=== PATIENT | female | born 2000 | race Caucasian/White ===

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

== ENCOUNTER → 2020-07-06 09:49 | Outpatient (BNVA) | payer MEDICAID, SELFPAY | PROVIDERS: PCP Nurse Practitioner; Visit Provider Nurse Practitioner Women's Health | DX: Z11.3 Encounter for screening for infections with a predominantly sexual mode of transmission (principal); N91.5 Oligomenorrhea, unspecified | CPT/HCPCS: 84443; 84702; 87491; 87591; 87661 ==

== ENCOUNTER → 2020-07-28 13:05 | Outpatient (BNVA) | payer MEDICAID, SELFPAY | PROVIDERS: PCP Nurse Practitioner; Visit Provider Nurse Practitioner Women's Health | DX: R10.2 Pelvic and perineal pain (principal) | CPT/HCPCS: 76830 ==

== ENCOUNTER → 2020-08-11 11:29 | Outpatient (BNVA) | payer MEDICAID, SELFPAY | PROVIDERS: Visit Provider Nurse Practitioner Women's Health | DX: D64.9 Anemia, unspecified (principal); N91.4 Secondary oligomenorrhea; R10.2 Pelvic and perineal pain | CPT/HCPCS: 82728; 82746; 83550; 85025 ==

== ENCOUNTER → 2020-11-08 09:42 | Outpatient (BNVA) | payer MEDICAID, SELFPAY | PROVIDERS: Visit Provider Nurse Practitioner Women's Health | DX: N91.4 Secondary oligomenorrhea (principal); R10.2 Pelvic and perineal pain; E61.1 Iron deficiency; N85.4 Malposition of uterus; N83.8 Other noninflammatory disorders of ovary, fallopian tube and broad ligament | CPT/HCPCS: 76830; 82728; 83550; 85025 ==

== ENCOUNTER → 2020-12-16 15:56 | Outpatient (BNVA) | payer MEDICAID, SELFPAY | PROVIDERS: Visit Provider Obstetrics & Gynecology | DX: N89.8 Other specified noninflammatory disorders of vagina (principal); R10.2 Pelvic and perineal pain | CPT/HCPCS: 87491; 87591; 87661 ==

== ENCOUNTER 2021-03-07 17:24 | Emergency (ER) | payer MEDICAID, SELFPAY ==
[2021-03-07 18:18] VITALS: BP 112/66; PULSE 74; RESP 15; TEMP 36.7; O2SAT 96; BMI 28.3
--- NOTE | 2021-03-07 19:02 | ED_ITS ---
HPI - General Adult General: Chief complaint: Vaginal Bleeding Stated complaint: Preg Bleeding Time Seen by Provider: 03/07/21 18:27 History of Present Illness: HPI narrative: Patient is a 20-year-old female presents the emergency room with complaints of vaginal spotting x1 day patient tells me that her LMP was on 02/09/2021. Since then, she is concerned that she may be and underwent multiple test which were all positive. Patient denies any pelvic cramps. Reports spotting x1 day. No other complaints of any abdominal pain or nausea/vomiting, fever/chills, diarrhea, melena/hematochezia, new vaginal discharge, or urinary symptoms. Onset:1 day ago Duration:1 day Location:home Severity:mild Associated symptoms: Deny chest pain, dyspnea, nausea, rash, palpitations or vomiting Review of Systems Const: Denies: fever(s) or chills Eyes: Denies: change in vision ENMT: Denies: mouth pain Card: Denies: chest pain or palpitations Resp: Denies: dyspnea or non-productive cough GI: Denies: abdominal pain, nausea, vomiting or diarrhea : Reports: vaginal bleeding and other; Denies: dysuria or urinary frequency Musc: Denies: extremity pain Skin/Breast: Denies: rash or new lesions Neuro: Denies: weakness in extremities Psych: Reports: other (Normal mood) Bryan/Lymph: Denies: easy bruising PFSH ED PFSH: Medical History Iron deficiency anemia No pertinent past medical history neghx: htn,dm,thyroid,dvt/pe PCP: None Surgical History No pertinent past surgical history Family History Father Heart disease Denies family history of Colon cancer Ovarian cancer Diabetes Hypercholesteremia Breast cancer Hypertension Uterine cancer Thyroid disease Stroke Social History (Updated 03/07/21 @ 19:03 by Maylin Ngo MD) Smoking and tobacco status: never smoked Female Reproductive History: Date of last menstrual period: 02/05/21 Physical Exam Const: COMMON NORMALS: alert HENMT: COMMON NORMALS: atraumatic HEAD & SCALP: atraumatic MOUTH: moist mucous membranes not abnormal Eye: COMMON NORMALS: EOMs intact bilaterally and conjunctivae normal CONJUNCTIVA: Yes conjunctivae normal Neck/C-Spine: COMMON NORMALS: full ROM and supple Resp: COMMON NORMALS: normal respiratory effort and clear to auscultation bilaterally AUSCULTATION: clear to auscultation bilaterally Cardio: COMMON NORMALS: regular rate RATE: regular rate GI: COMMON NORMALS: Soft to palpation and non-tender PALPATION: Yes Soft to palpation : OTHER: Exam supervised by Keara JENKINS. External genitalia wnl. No erythema around cervical os, os closed, no discharge, +pool of blood in the vaginal vault without any active bleeding. Extremity: COMMON NORMALS: full ROM Neuro: SENSORIUM/ORIENTATION: Yes alert MOTOR EXAM: No Abnormal motor strength present and Other motor observations present (no focal motor deficits) Psych: COMMON NORMALS: speech normal SPEECH: Yes normal speech MOOD & AFFECT: Yes euthymic mood Course Vital Signs: Vital signs: Vital Signs Temperature 98.0 F 03/07/21 18:18 Pulse Rate 74 03/07/21 18:18 Respiratory Rate 15 03/07/21 18:18 Blood Pressure 112/66 03/07/21 18:18 Pulse Oximetry 96 03/07/21 18:18 MDM - General Adult MDM Narrative: Medical decision making narrative: Patient is a 20-year-old female G2, P1 presenting to the emergency room for evaluation of possible vaginal bleeding in setting of . Patient had multiple at home test was positive. Patient is noted to have a quantitative beta-hCG of 7. Pelvic ultrasound did not show any signs of active bleeding. However there is a pool of blood noted in the vaginal vault. Today she appears to be similar to previous H&H. Rh+. No signs of active bleeding on vaginal exam. I have given patient follow up with our senior case manager to be seen by Dr. Rodarte for vaginal bleeding and early given beta hcg of 7. Patient aware of a call from our senior case manager to schedule for appointment(s) and verbalizes understanding of the importance of following up. Instructed patient that it is important for her to follow-up with this provider since we need to trend her beta-hCG over time. Disposition: Discharge. Patient counseled regarding diagnostic impression, treatment plan. Patient given ED strict return precautions to return for continuation, worsening, or development of new symptoms. Instructed to f/u w/ Dr. Wheeler regarding symptoms today. Patient verbalized understanding. Lab Data: Labs: Lab Results 03/07/21 03/07/21 03/07/21 19:12 19:45 19:45 WBC 5.7 10^3/uL 10^3/ uL (4.5-13.0) RBC 4.91 10^6/uL 10^6 /uL (4.1-5.3) Hgb 10.6 g/dL L g/dL (11.5-15.3) Hct 35.7 % L % (37.0-47.0) MCV 72.7 fl L fl (81-99) MCH 21.6 pg L pg (28.0-34.0) MCHC 29.7 g/dL L g/dL (30.0-36.0) RDW 16.1 % H % (12.1-15.1) Plt Count 172 10^3/cmm 10^3 /cmm (130-400) MPV Not Reportable Neut % (Auto) 58.2 % % Lymph % (Auto) 31.7 % % [place] % (Auto) 8.4 % % Eos % (Auto) 1.0 % % Baso % (Auto) 0.5 % % Neut # (Auto) 3.34 10^3/uL 10^3 /uL (1.8-8.0) Lymph # (Auto) 1.8 10^3/uL 10^3/ uL (1.5-6.5) [place] # (Auto) 0.5 10^3/uL 10^3/ uL (0.2-0.9) Eos # (Auto) 0.1 10^3/uL 10^3/ uL (0.0-0.8) Baso # (Auto) 0.0 10^3/uL 10^3/ uL (0.0-0.1) Nucleated RBC % (a uto) 0 % % Nucleated RBCs # 0.0 /100WBC /100W BC Sodium 140 mmol/L mmol/L (136-145) Potassium 3.1 mmol/L L mmol /L (3.5-5.1) Chloride 105 mmol/L mmol/L (98-107) Carbon Dioxide 24 mmol/L mmol/L (22-29) Anion Gap 14.1 (5-19) BUN 5 mg/dL L mg/dL (6-20) Creatinine 0.7 mg/dL mg/dL (0.5-0.9) GFR Calculation 106.7 mL/min mL/m in (90-130) Glucose 83 mg/dL mg/dL (65-115) Calculated Osmolal ity 286 mOsm/kg mOsm/ kg (285-295) Calcium 8.3 mg/dL L mg/dL (8.5-10.5) Total Bilirubin 0.2 mg/dL mg/dL (0.15-1.2) AST 11 U/L U/L (0-32) ALT 8 U/L U/L (0-33) Alkaline Phosphata se 55 IU/L IU/L (35-105) Total Protein 6.6 g/dL g/dL (6.6-8.7) Albumin 4.3 g/dL g/dL (3.5-5.2) Globulin 2.3 g/dL g/dL (1.3-4.6) Ser , Ruy i-Qnt 7.15 mIU/mL mIU/m L Urine Color Dark yellow (Yellow) Urine Appearance Cloudy (CLEAR) Urine pH 6 (5-7) Ur Specific Gravit y 1.015 (1.005-1.030) Urine Protein 1+ H (Negative) Urine Glucose (UA) Norm (Normal) Urine Ketones Negative (Negative) Urine Blood 3+ H (Negative) Urine Nitrate Negative (Negative) Urine Bilirubin Neg (Negative) Urine Urobilinogen 1 mg/dL H mg/dL (Negative) Ur Leukocyte Briana ase Negative (Negative) Urine RBC Too numerous to c nt /hpf H /hpf (0-2) Urine WBC None /hpf /hpf (0-5) Ur Squamous Epith Cells 15-25 /hpf H /hpf (0-5) Amorphous Sediment Not Reportable Urine Bacteria None /hpf /hpf (NONE) Urine Mucus 1+ /hpf /hpf Blood Type Rho(D) Type 03/07/21 19:45 WBC RBC Hgb Hct MCV MCH MCHC RDW Plt Count MPV Neut % (Auto) Lymph % (Auto) [place] % (Auto) Eos % (Auto) Baso % (Auto) Neut # (Auto) Lymph # (Auto) [place] # (Auto) Eos # (Auto) Baso # (Auto) Nucleated RBC % (a uto) Nucleated RBCs # Sodium Potassium Chloride Carbon Dioxide Anion Gap BUN Creatinine GFR Calculation Glucose Calculated Osmolal ity Calcium Total Bilirubin AST ALT Alkaline Phosphata se Total Protein Albumin Globulin Ser , Ruy i-Qnt Urine Color Urine Appearance Urine pH Ur Specific Gravit y Urine Protein Urine Glucose (UA) Urine Ketones Urine Blood Urine Nitrate Urine Bilirubin Urine Urobilinogen Ur Leukocyte Briana ase Urine RBC Urine WBC Ur Squamous Epith Cells Amorphous Sediment Urine Bacteria Urine Mucus Blood Type A Positive Rho(D) Type Positive Discharge Plan Discharge Patient Disposition: Home Clinical Impression: Vaginal bleeding Condition: Stable Prescriptions: No Action levonorgestrel-ethinyl estrad [Levora-28] 0.15-0.03 mg tablet 1 tab PO DAILY Qty: 84 RF: 3 ibuprofen 800 mg tablet 800 mg PO TID PRN (Reason: pain) RF: 0 doxycycline hyclate 100 mg capsule 100 mg PO BID 14 Days Qty: 28 RF: 0 metronidazole [Flagyl] 500 mg tablet 500 mg PO BID 14 Days Qty: 28 RF: 0 ferrous sulfate 325 mg (65 mg iron) tablet 325 mg PO BID Qty: 60 RF: 4 Discharge Orders: Discharge ED (Routine); Ordered 03/07/21 Ordered By: Maylin Ngo Discharge Diet: Advance as tolerated Discharge Activity: Resume usual activity Patient Instructions: Abnormal (Dysfunctional) Uterine Bleeding (ED) Activity Restrictions/Additional Instructions: Our senior case manager will have you follow-up with Dr. Wheeler in the next few days for vaginal bleeding. You would be expected to have a phone call with our senior case manager who will put you on the schedule. Come back to the emergency room if you noticed any significant bleeding, nausea/vomiting, fever/chills, any new EXTR complaints Coding Level of Care Code ED Hold Worker for Waleg Fwd Exam Comprehensive
[2021-03-07 19:52] LABS: Basophils % 0.5 %; Eosinophils # 0.1 10^3/uL (0.0-0.8); Hematocrit 35.7 % (37.0-47.0); Hemoglobin 10.6 g/dL (11.5-15.3); Lymphocytes # 1.8 10^3/uL (1.5-6.5); Lymphocytes % 31.7 %; Mean Corpuscular HGB Conc 29.7 g/dL (30.0-36.0); Mean Corpuscular Hemoglobin 21.6 pg (28.0-34.0); Mean Corpuscular Volume 72.7 fl (81-99); Monocytes # 0.5 10^3/uL (0.2-0.9); Monocytes % 8.4 %; Neutrophils # 3.34 10^3/uL (1.8-8.0); Neutrophils % 58.2 %; Nucleated Red Blood Cells % 0 %; Platelet Count 172 10^3/cmm (130-400); Red Blood Count 4.91 10^6/uL (4.1-5.3); Red Cell Distribution Width 16.1 % (12.1-15.1); White Blood Count 5.7 10^3/uL (4.5-13.0)
[2021-03-07 19:56] LABS: Protein Urine 1+ (Negative); Specific Gravity, Urine 1.015 (1.005-1.030); Urine Appearance Cloudy (CLEAR); Urine Color Dark Yellow (Yellow); pH Urine 6 (5-7)
[2021-03-07 19:57] LABS: Add Urine Culture? No; Add Urine Microscopic? YES; Bilirubin Urine Neg (Negative); Blood Urine 3+ (Negative); Glucose Urine UA Norm (Normal); Ketones Urine Negative (Negative); Leukocyte Esterase Urine Negative (Negative); Mucus Urine 1+ /hpf; Nitrate Urine Negative (Negative); RBC Urine TOO NUMEROUS TO CNT /hpf (0-2); Squamous Epithelial Cell Urine 15-25 /hpf (0-5); Urobilinogen Urine 1 mg/dL (Negative)
[2021-03-07 20:17] LABS: Slide Review Slide Review Perform
[2021-03-07 20:25] LABS: HCG Quantitative 7.15 mIU/mL
[2021-03-07 20:36] LABS: Alanine Aminotransferase 8 U/L (0-33); Albumin Level 4.3 g/dL (3.5-5.2); Alkaline Phosphatase 55 IU/L (35-105); Anion Gap 14.1 (5-19); Aspartate Amino Transferase 11 U/L (0-32); Blood Urea Nitrogen 5 mg/dL (6-20); Calcium 8.3 mg/dL (8.5-10.5); Carbon Dioxide 24 mmol/L (22-29); Chloride 105 mmol/L (98-107); Globulin 2.3 g/dL (1.3-4.6); Glomerular Filtration Rate 106.7 mL/min (90-130); Glucose 83 mg/dL (65-115); Osmolality Calculated 286 mOsm/kg (285-295); Potassium 3.1 mmol/L (3.5-5.1); Sodium 140 mmol/L (136-145); Total Bilirubin 0.2 mg/dL (0.15-1.2); Total Protein 6.6 g/dL (6.6-8.7)
[2021-03-07 21:52] VITALS: BP 115/67; PULSE 71; RESP 16; TEMP 36.7; O2SAT 97
--- NOTE | 2021-03-08 15:12 | DCPLANNER ---
Addendum entered by Vera Ga 04/21/21 11:24: Patient had a follow up appointment scheduled for 04.11.21 with [facility] - patient did not attend appointment. Addendum entered by Vera Ga 04/12/21 08:01: athletic equipment manager was contacted by the [facility], was told that clinic will not see patient at this time due to many no shows in the past. The clinic has discharged patient and will not see. Clinic called patient, and cancelled the appointment, and explained to patient that she will not be seen at the clinic. Addendum entered by Vera aG 03/24/21 13:34: Patient has a followup appointment scheduled for Sunday, April 11, 2021 at 1:[address] Perez at [facility]. Clinic will call patient with appointment information. Original Note: athletic equipment manager had message to schedule a follow up appointment for patient with [facility]. athletic equipment manager called the [facility], spoke with Henry, gave clinic patients information. athletic equipment manager was told that patients information would be printed and reviewed. Clinic will call patient with appointment information.
== END 2021-03-07 21:54 | disposition home or self-care (01) ==
PROVIDERS: Nurse Practitioner Family; Emergency Provider Emergency Medicine
DX: N93.9 Abnormal uterine and vaginal bleeding, unspecified (principal)
CPT/HCPCS: 80053; 81001; 84702; 85025; 86900; 99283

== ENCOUNTER 2021-03-13 17:05 | Emergency (ER) | payer MEDICAID, SELFPAY ==
[2021-03-13 17:50] VITALS: BP 115/78; PULSE 70; RESP 16; O2SAT 98
[2021-03-13 19:06] LABS: Basophils # 0.1 10^3/uL (0.0-0.1); Eosinophils # 0.1 10^3/uL (0.0-0.8); Eosinophils % 1.7 %; Hematocrit 35.4 % (37.0-47.0); Hemoglobin 10.1 g/dL (11.5-15.3); Lymphocytes # 2.3 10^3/uL (1.5-6.5); Lymphocytes % 43.4 %; Mean Corpuscular HGB Conc 28.5 g/dL (30.0-36.0); Mean Corpuscular Hemoglobin 21.1 pg (28.0-34.0); Mean Corpuscular Volume 73.9 fl (81-99); Monocytes # 0.4 10^3/uL (0.2-0.9); Monocytes % 6.7 %; Neutrophils # 2.45 10^3/uL (1.8-8.0); Nucleated Red Blood Cells % 0 %; Platelet Count 202 10^3/cmm (130-400); Red Blood Count 4.79 10^6/uL (4.1-5.3); Red Cell Distribution Width 16.3 % (12.1-15.1); White Blood Count 5.2 10^3/uL (4.5-13.0)
[2021-03-13 19:22] LABS: HCG, Serum Qual Negative (Negative)
[2021-03-13 19:28] LABS: Slide Review Slide Review Perform
--- NOTE | 2021-03-13 19:37 | ED_ITS ---
HPI - General Adult General: Chief complaint: Vaginal Bleeding Stated complaint: Was told she miscarried and wants a second opinion Time Seen by Provider: 03/13/21 19:37 History of Present Illness: HPI narrative: 20-year-old female comes in today for complaints of miscarriage. Patient reports that she had a miscarriage back on the and bled for about 3 days. Patient did not notice any large passage of product. Patient came in for further evaluation. Patient appears well. Patient denies any fever. Patient appears in no pain. Review of Systems : Reports: irregular period PFSH ED PFSH: Medical History Iron deficiency anemia No pertinent past medical history neghx: htn,dm,thyroid,dvt/pe PCP: None Surgical History No pertinent past surgical history Family History Father Heart disease Denies family history of Colon cancer Ovarian cancer Diabetes Hypercholesteremia Breast cancer Hypertension Uterine cancer Thyroid disease Stroke Social History (Updated 03/07/21 @ 19:03 by Maylin Ngo MD) Smoking and tobacco status: never smoked Female Reproductive History: Date of last menstrual period: 02/05/21 Physical Exam Const: COMMON NORMALS: healthy appearing Resp: COMMON NORMALS: normal respiratory effort Cardio: COMMON NORMALS: regular rate and regular rhythm RATE: regular rate RHYTHM: regular rhythm GI: COMMON NORMALS: Soft to palpation PALPATION: Yes Soft to palpation and No Tenderness to palpation present (GI) Extremity: COMMON NORMALS: normal to inspection Course Vital Signs: Vital signs: Vital Signs Pulse Rate 70 03/13/21 17:50 Respiratory Rate 16 03/13/21 17:50 Blood Pressure 115/78 03/13/21 17:50 Pulse Oximetry 98 03/13/21 17:50 MDM - General Adult MDM Narrative: Medical decision making narrative: Patient came in for concerns of not passing any products of conception after miscarriage. Patient reports that she was about 3 weeks along when she had a miscarriage. Patient reports 3 days of bleeding but no obvious signs of products of conception. Vital signs are normal. Patient appears well. Differential diagnosis includes but not limited to incomplete spontaneous , miscarriage, worried well. Laboratory values were CBC which was unchanged. Serum hCG was negative. I reviewed with patient red flags to monitor for including fever, abnormal vaginal discharge, or bleeding greater than 1 pad an hour with recommendations for follow-up. I reassured the patient that she may have not had a large amount of product passed and may not have noticed it with her bleeding. Patient understands to monitor for signs of infection and return as needed. Patient reported understanding of care plan. Lab Data: Labs: Lab Results 03/13/21 03/13/21 18:56 18:56 WBC 5.2 10^3/uL 10^3/ uL (4.5-13.0) RBC 4.79 10^6/uL 10^6 /uL (4.1-5.3) Hgb 10.1 g/dL L g/dL (11.5-15.3) Hct 35.4 % L % (37.0-47.0) MCV 73.9 fl L fl (81-99) MCH 21.1 pg L pg (28.0-34.0) MCHC 28.5 g/dL L g/dL (30.0-36.0) RDW 16.3 % H % (12.1-15.1) Plt Count 202 10^3/cmm 10^3 /cmm (130-400) MPV Not Reportable Neut % (Auto) 47.0 % % Lymph % (Auto) 43.4 % % [place] % (Auto) 6.7 % % Eos % (Auto) 1.7 % % Baso % (Auto) 1.0 % % Neut # (Auto) 2.45 10^3/uL 10^3 /uL (1.8-8.0) Lymph # (Auto) 2.3 10^3/uL 10^3/ uL (1.5-6.5) [place] # (Auto) 0.4 10^3/uL 10^3/ uL (0.2-0.9) Eos # (Auto) 0.1 10^3/uL 10^3/ uL (0.0-0.8) Baso # (Auto) 0.1 10^3/uL 10^3/ uL (0.0-0.1) Nucleated RBC % (a uto) 0 % % Nucleated RBCs # 0.0 /100WBC /100W BC HCG, Qual Negative (Negative) Discharge Plan Discharge Patient Disposition: Home Clinical Impression: Miscarriage Condition: Stable Prescriptions: No Action levonorgestrel-ethinyl estrad [Levora-28] 0.15-0.03 mg tablet 1 tab PO DAILY Qty: 84 RF: 3 ibuprofen 800 mg tablet 800 mg PO TID PRN (Reason: pain) RF: 0 doxycycline hyclate 100 mg capsule 100 mg PO BID 14 Days Qty: 28 RF: 0 metronidazole [Flagyl] 500 mg tablet 500 mg PO BID 14 Days Qty: 28 RF: 0 ferrous sulfate 325 mg (65 mg iron) tablet 325 mg PO BID Qty: 60 RF: 4 Discharge Orders: Discharge ED (Routine); Ordered 03/13/21 Ordered By: Everton Nuñez Discharge Diet: Usual diet Discharge Activity: Increase activity as tolerated Patient Instructions: Miscarriage (ED), Opioid Safety Activity Restrictions/Additional Instructions: Follow-up with primary care. Monitor for fever greater than 100.4, abnormal vaginal discharge, or bleeding through 1 pad greater than an hour. Return to the ER as needed. Coding Level of Care Code ED Bra[address] [employer] for Guilherme Sneed
[2021-03-13 20:11] VITALS: PULSE 62; RESP 16; O2SAT 99
== END 2021-03-13 20:12 | disposition home or self-care (01) ==
PROVIDERS: Emergency Provider Nurse Practitioner Family
DX: O03.9 Complete or unspecified spontaneous abortion without complication (principal)
CPT/HCPCS: 36415; 84703; 85025; 99282

== ENCOUNTER 2021-05-29 00:26 | Emergency (ER) | payer MEDICAID, SELFPAY ==
[2021-05-29 00:40] VITALS: BP 101/67; PULSE 71; RESP 19; TEMP 36.7; O2SAT 99; BMI 28.0
--- NOTE | 2021-05-29 00:54 | ED_ITS ---
HPI - Back Pain/Injury General: Chief Complaint: Back Pain/Injury Stated Complaint: Lower Back Pain\Ovary Pain Time Seen by Provider: 05/29/21 00:54 History of Present Illness: 20-year-old female comes in today with right side abdominal pain radiating to her back. Patient reports a history of ovarian cyst. Patient denies any fever or chills. Patient is also concerned about STDs as her male significant other is not painful. Patient reports no significant vaginal discharge or drainage. Patient appears well. Patient appears in mild pain. MD elicited complaint: back pain Associated symptoms: Reports abdominal pain; Deny vomiting Review of Systems General: Reports: 10 or more systems reviewed and unremarkable except in HPI and below Card: Denies: chest pain Resp: Denies: dyspnea GI: Reports: abdominal pain; Denies: vomiting, diarrhea or constipation : Denies: vaginal odor, vaginal bleeding or vaginal discharge Musc: Reports: back pain PFS ED PFSH: Medical History Iron deficiency anemia No pertinent past medical history neghx: htn,dm,thyroid,dvt/pe PCP: None Surgical History No pertinent past surgical history Family History Father Heart disease Denies family history of Colon cancer Ovarian cancer Diabetes Hypercholesteremia Breast cancer Hypertension Uterine cancer Thyroid disease Stroke Social History (Updated 03/07/21 @ 19:03 by Maylin Ngo MD) Smoking and tobacco status: never smoked Female Reproductive History: Date of last menstrual period: 05/07/21 Physical Exam Const: COMMON NORMALS: alert Resp: COMMON NORMALS: normal respiratory effort and clear to auscultation bilaterally AUSCULTATION: clear to auscultation bilaterally Cardio: COMMON NORMALS: regular rate and regular rhythm RATE: regular rate RHYTHM: regular rhythm GI: COMMON NORMALS: Soft to palpation PALPATION: Yes Soft to palpation and Yes Tenderness to palpation present (GI) (Suprapubic) : COMMON NORMALS: Yes no CVA tenderness BLADDER/KIDNEY EXAM: Yes no CVA tenderness Back/Pelvis: COMMON NORMALS: no CVA tenderness Extremity: COMMON NORMALS: normal to inspection and full ROM Neuro: SENSORIUM/ORIENTATION: Yes alert Skin: COMMON NORMALS: no rashes or lesions noted GENERAL SKIN EXAM: no maria del rosario hes or lesions noted Course Vital Signs: Vital signs: Vital Signs Temperature 98.0 F 05/29/21 00:40 Pulse Rate 71 05/29/21 00:40 Respiratory Rate 19 H 05/29/21 00:40 Blood Pressure 101/67 05/29/21 00:40 Pulse Oximetry 99 05/29/21 00:40 MDM - Back Pain/Injury Medical Decision Making 20-year-old female comes in today with complaints of low back pain and suprapubic discomfort. Patient reports no significant abnormal bleeding or vaginal discharge. Patient reports no pain with urination. Patient is concerned about STIs. On exam respirations are even lungs are clear to a uscultation. Abdomen soft with some suprapubic tenderness. No palpable paraspinous muscle tenderness or spinal tenderness is noted on palpation. Differential diagnosis includes but not limited to ovarian cyst, UTI, STD. Review of the record patient has had multiple ultrasounds of her pelvis and often she has indication for ovarian cyst with one report showing polycystic ovarian syndrome. Urinalysis today had a large amount of white blood cells but also was contaminated with skin cells. We will go ahead and send urine for gonorrhea chlamydia evaluation. We will cover a 500 mg of Rocephin and continue patient on doxycycline due to her concerns for STI. I believe the pain probably most likely is due to ovarian cyst. Patient should follow-up with primary care and may be consider RAIL CAR LOADER for further evaluation. No sign of serious illness was noted on exam and patient was recommended and encouraged to follow-up. Labs Laboratory Results Urine Color Yellow (Yellow) 05/29/21 00:48 Urine Appearance Sl hazy (CLEAR) 05/29/21 00:48 Urine pH 7 (5-7) 05/29/21 00:48 Ur Specific [place] 1.015 (1.005-1.030) 05/29/21 00:48 Urine Protein Trace (Negative) 05/29/21 00:48 Urine Glucose (UA) Norm (Normal) 05/29/21 00:48 Urine Ketones 1+ (Negative) H 05/29/21 00:48 Urine Blood Neg (Negative) 05/29/21 00:48 Urine Nitrate Negative (Negative) 05/29/21 00:48 Urine Bilirubin Neg (Negative) 05/29/21 00:48 Urine Urobilinogen 1 mg/dL (Negative) H 05/29/21 00:48 Ur Leukocyte Esterase 1+ (Negative) H 05/29/21 00:48 Urine RBC 0-4 /hpf (0-2) H 05/29/21 00:48 Urine WBC 15-25 /hpf (0-5) H 05/29/21 00:48 Ur Squamous Epith Cells 25-40 /hpf (0-5) H 05/29/21 00:48 Amorphous Sediment Not Reportable 05/29/21 00:48 Urine Bacteria 2+ /hpf (NONE) H 05/29/21 00:48 Urine Mucus 3+ /hpf 05/29/21 00:48 Urine HCG, Qual Negative (Negative) 05/29/21 00:48 Discharge Plan Discharge Patient Disposition: Home Clinical Impression: Pelvic pain, Family history of STDs Condition: Stable Prescriptions: New naproxen 500 mg tablet 500 mg PO BID Qty: 14 0RF Continued doxycycline hyclate 100 mg capsule 100 mg PO BID 7 Days Qty: 14 0RF No Action levonorgestrel-ethinyl estrad [Levora-28] 0.15-0.03 mg tablet 1 tab PO DAILY Qty: 84 3RF ibuprofen 800 mg tablet 800 mg PO TID PRN (Reason: pain) 0RF metronidazole [Flagyl] 500 mg tablet 500 mg PO BID 14 Days Qty: 28 0RF ferrous sulfate 325 mg (65 mg iron) tablet 325 mg PO BID Qty: 60 4RF Discharge Orders: Discharge ED (Routine); Ordered 05/29/21 Ordered By: Everton Nuñez Discharge Diet: Usual diet Discharge Activity: Increase activity as tolerated Activity Restrictions/Additional Instructions: Activity as tolerated. Use naproxen 500 mg twice a day to control pain. Use acetaminophen, Tylenol, for breakthrough pain. Drink plenty of water with medications. Take doxycycline 100 mg twice a day for the next 7 days. Follow- up with primary care in 3 days for recheck. Primary care can call the hospital and get a review of the outstanding labs. Stand Alone Forms: Work/School Release Coding Level of Care Code ED Rear Admiral for Guilherme Fwd Exam Detailed
[2021-05-29 01:07] LABS: Add Urine Microscopic? YES; Bilirubin Urine Neg (Negative); Blood Urine Neg (Negative); Glucose Urine UA Norm (Normal); Ketones Urine 1+ (Negative); Leukocyte Esterase Urine 1+ (Negative); Nitrate Urine Negative (Negative); Protein Urine Trace (Negative); Specific Gravity, Urine 1.015 (1.005-1.030); Urine Appearance SL Hazy (CLEAR); Urine Color Yellow (Yellow); Urobilinogen Urine 1 mg/dL (Negative); pH Urine 7 (5-7)
[2021-05-29 01:20] LABS: Add Urine Culture? No; Bacteria Urine 2+ /hpf; Mucus Urine 3+ /hpf; RBC Urine 0-4 /hpf (0-2); Squamous Epithelial Cell Urine 25-40 /hpf (0-5); WBC Urine 15-25 /hpf (0-5)
[2021-05-29] MEDS: doxycycline 100 mg Tablet PO (01:43)
[2021-05-29 02:06] VITALS: BP 120/72; PULSE 80; RESP 20; O2SAT 98
--- NOTE | 2021-05-29 14:11 | PC.NURSE ---
Provider notified of critical lab test results positive for chlamydia. Provider said he will notify patient. No new orders given to this nurse
== END 2021-05-29 02:07 | disposition home or self-care (01) ==
PROVIDERS: Emergency Provider Nurse Practitioner Family
DX: R10.2 Pelvic and perineal pain (principal)
CPT/HCPCS: 81001; 81025; 87491; 87591; 96372; 99283; J0696

== ENCOUNTER → 2023-06-21 11:30 | Outpatient (BNVA) | payer MEDICAID, SELFPAY | PROVIDERS: Visit Provider Registered Nurse Neonatal Intensive Care | DX: R11.0 Nausea (principal) | CPT/HCPCS: 81000 ==